=== PATIENT | female | born 1995 | race Caucasian/White ===

== ENCOUNTER 2016-10-07 | Outpatient (CLI) | payer OTHER | END 2016-10-08 03:01 | disposition home or self-care (01) | CPT/HCPCS: 59025; G0463; 99213 ==

== ENCOUNTER 2019-09-30 22:33 | Emergency (ER) | payer OTHER ==
[2019-09-30 22:40] VITALS: TEMP 98.8
[2019-09-30] MEDS ORDERED: diphenhydrAMINE 50 MG CAP PO STA ×2 (22:59→23:10)
[2019-09-30] MEDS ORDERED: FAMOTIDINE 20 MG TAB PO STA (22:59)
[2019-09-30] MEDS ORDERED: predniSONE 20 MG TAB PO STA (22:59)
--- NOTE | 2019-09-30 23:12 | ED ---
General Adult HPI - General Chief complaint: Skin/Abscess/Foreign Body Stated complaint: Rash Time Seen by Provider: 09/30/19 22:35 Source: patient Mode of arrival: ambulatory Limitations: no limitations - History of Present Illness Initial comments: The patient is a 24 year old female with no past medical history who presents to the emergency room with generalized rash. She states it has been present for the past 5 days. It is pruritic in nature and states that scratching it produces worsening of the rash. She denies any new exposures to any bath products, foods, animals or medications. She has been taking Angela daily with slight improvement in her symptoms. She also has been using hydrocortisone cream. The rashes located on her arms, trunk, back and legs. It consists of multiple round papules which welts when itched. Denies previous ALLERGIES. Denies any airway compromise. No chest pain or shortness of breath. No sensation of throat closing off. Denies palpitations. No nausea or vomiting. Denies any abdominal pain. No concern for . Denies fevers or chills. There are no other alleviating, precipitating or modifying factors - Related Data Previous Rx's Medication Instructions Recorded Famotidine [Pepcid] 20 mg PO DAILY #10 tablet 09/30/19 Loratadine [Claritin] 10 mg PO DAILY #10 tablet 09/30/19 diphenhydrAMINE [Benadryl] 25 mg PO HS #10 capsule 09/30/19 predniSONE 20 mg PO BID #10 tab 09/30/19 Allergies Allergy/AdvReac Type Severity Reaction Status Date / Time No Known Allergies Allergy Verified 10/07/16 23:48 Review of Systems ROS Statement: Those systems with pertinent positive or pertinent negative responses have been documented in the HPI. ROS Other: All systems not noted in ROS Statement are negative. Past Medical History Past Medical History: No Reported History History of Any Multi-Drug Resistant Organisms: None Reported Past Surgical History: No Surgical Hx Reported Past Anesthesia/Blood Transfusion Reactions: No Reported Reaction Past Psychological History: Anxiety Smoking Status: Current every day smoker Past Alcohol Use History: Rare Past Drug Use History: None Reported - Past Family History Father Family Medical History: No Reported History General Exam Limitations: no limitations General appearance: alert, in no apparent distress Head exam: Present: atraumatic, normocephalic, normal inspection Eye exam: Present: normal appearance, PERRL, EOMI. Absent: scleral icterus, conjunctival injection, periorbital swelling ENT exam: Present: normal exam, mucous membranes moist Neck exam: Present: normal inspection. Absent: tenderness, meningismus, lymphadenopathy Respiratory exam: Present: normal lung sounds bilaterally. Absent: respiratory distress, wheezes, rales, rhonchi, stridor Cardiovascular Exam: Present: regular rate, normal rhythm, normal heart sounds. Absent: systolic murmur, diastolic murmur, rubs, gallop, clicks GI/Abdominal exam: Present: soft, normal bowel sounds. Absent: distended, tenderness, guarding, rebound, rigid Extremities exam: Present: normal inspection, full ROM, normal capillary refill. Absent: tenderness, pedal edema, joint swelling, calf tenderness Back exam: Present: normal inspection Neurological exam: Present: alert, oriented X3, CN II-XII intact Psychiatric exam: Present: normal affect, normal mood Skin exam: Present: warm, dry, intact, rash (urticarial rash located on the trunk, back, arms and legs) Course Vital Signs 09/30/19 09/30/19 22:37 23:19 Temperature 98.8 F Pulse Rate 114 H 92 Respiratory 20 16 Rate Blood Pressure 146/91 135/94 O2 Sat by Pulse 100 100 Oximetry EKG Findings - EKG Comments: EKG Findings:: EKG demonstrates normal sinus rhythm with ventricular rate of 94. TX interval 112. QRS 86. QTC of 427. No acute ST segment elevations or depressions. Inverted T-wave in lead V3. Medical Decision Making - Medical Decision Making Upon arrival the patient is placed into room 11. A thorough history and physical exam was performed. The patient does not demonstrate any airway compromise. She does have an elevated heart rate on vitals therefore I completed a 12-lead EKG which demonstrates normal sinus rhythm. I discussed diagnosis, differential and treatment options. I recommended treatment for acute dermatitis with steroids, Benadryl and Pepcid. The patient did agree to this. She was given 60 mg prednisone, 50 mg of Benadryl and 20 mg of Pepcid. She will be given prescriptions for these medications. She is to take the Benadryl at night and Claritin during the day. She is given palpitation for an geospatial technician. Keep a log upon exposure is. Return to the emergency room for new or worsening symptoms. Patient was in agreement with the treatment plan and discharged home in stable condition Disposition Clinical Impression: Contact dermatitis Disposition: HOME SELF-CARE Condition: Stable Instructions (If sedation given, give patient instructions): Dermatitis (ED) Additional Instructions: Please follow-up with geospatial technician for further evaluation. Return to the emergency room for any new or worsening symptoms Prescriptions: diphenhydrAMINE [Benadryl] 25 mg PO HS #10 capsule Loratadine [Claritin] 10 mg PO DAILY #10 tablet Famotidine [Pepcid] 20 mg PO DAILY #10 tablet predniSONE 20 mg PO BID #10 tab Is patient prescribed a controlled substance at d/c from ED?: No Referrals: Adrian Cifuentes MD [Primary Care Provider] - 1-2 days Whitley Toney MD [STAFF PHYSICIAN] - 1-2 days Time of Disposition: 23:15
[2019-09-30 23:19] VITALS: BP 135/94; PULSE 92; RESP 16
== END 2019-09-30 23:22 | disposition home or self-care (01) ==
LOC: EC 22:33
DX: L25.9 Unspecified contact dermatitis, unspecified cause (principal); F17.200 Nicotine dependence, unspecified, uncomplicated
CPT/HCPCS: 93005; 99283; J7512